=== PATIENT | female | born 2000 | race Two or more races ===

== ENCOUNTER 2019-07-28 14:26 | Emergency (ER) | payer SELFPAY ==
[~2019-07-28] VITALS: Ht 172.7 cm; Wt 90.7 kg
[2019-07-28 15:03] VITALS: BP 127/78
[2019-07-28] MEDS ORDERED: IBUPROFEN 600 MG TAB PO ONE (15:15)
[2019-07-28] MEDS ORDERED: ACETAMINOPHEN 325 MG TAB PO ONE (15:15)
== END 2019-07-28 16:21 | disposition home or self-care (01) ==
LOC: ER 14:26
DX: H66.91 Otitis media, unspecified, right ear (principal); J03.90 Acute tonsillitis, unspecified